=== PATIENT | male | born 1980 | race African-American/Black ===

== ENCOUNTER 2017-05-29 18:02 | Emergency (ER) | payer SELFPAY ==
[2017-05-29] MEDS ORDERED: RINGERS SOLUTION,LACTATED 1,000 ML IV ONE (18:55)
--- NOTE | 2017-05-29 19:14 | ER Document Report ---
ED General - General Mode of Arrival: Ambulatory Information source: Patient TRAVEL OUTSIDE OF THE [place] IN LAST 30 DAYS: No - HPI Onset: This afternoon - General Chief Complaint: General Weakness Stated Complaint: WEAKNESS Time Seen by Provider: 05/29/17 18:54 Notes: Patient is a 36-year-old male who presents to the emergency department today with complaints of "being dehydrated". 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 Patient states he believes that he drank enough water today, stating he carries around a gallon of water a day. Patient states that around 1400 he began "sweating uncontrollably" but he "feels 100% better now". Patient states he has a slight headache. (RASHMI SWEENEY) - Related Data Allergies/Adverse Reactions: milk [Milk] Allergy (Verified 09/27/15 13:48) Past Medical History - General Information source: Patient - Social History Smoking Status: Current Every Day Smoker Cigarette use (# per day): Yes Frequency of alcohol use: None Drug Abuse: None Lives with: Family Family History: Reviewed & Not Pertinent Patient has suicidal ideation: No - Medical History Medical History: Negative Surgical Hx: Negative - Immunizations Hx Diphtheria, Pertussis, Tetanus Vaccination: No Review of Systems - Review of Systems Constitutional: See HPI, Other - dehydrated EENT: No symptoms reported Cardiovascular: No symptoms reported Respiratory: No symptoms reported Gastrointestinal: No symptoms reported Genitourinary: No symptoms reported Male Genitourinary: No symptoms reported Musculoskeletal: No symptoms reported Skin: No symptoms reported Hematologic/Lymphatic: No symptoms reported Neurological/Psychological: See HPI, Weakness - generalized, Headaches Physical Exam - Vital signs Vitals: Temp Pulse Resp BP Pulse Ox 98.3 F 82 14 149/101 H 100 05/29/17 18:04 05/29/17 18:04 05/29/17 18:04 05/29/17 18:04 05/29/17 18:04 - Notes Notes: Physical Exam: General: Alert, appears well. HEENT: Normocephalic. Atraumatic. PERRL. Extraocular movements intact. Oropharynx clear. Dry mucous membranes. Neck: Supple. Non-tender. Respiratory: No respiratory distress. Clear and equal breath sounds bilaterally. Cardiovascular: Regular rate and rhythm. Abdominal: Normal Inspection. Non-tender. No distension. Normal Bowel Sounds. Back: Non-tender. No deformity or step off. Extremities: Moves all four extremities. Upper extremities: Normal inspection. Normal ROM. Lower extremities: Normal inspection. No edema. Normal ROM. Neurological: Normal cognition. AAOx4. Normal speech. Psychological: Normal affect. Normal Mood. Skin: Warm. Dry. Normal color. (RASHMI SWEENEY) Course - Re-evaluation Re-evalutation: 05/29 Patient appears well. Patient apparently was working outside in the heat all day. Patient states that he felt like he might pass out and felt very hot. He states that he feels better now. 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 Advised that he make sure he is drinking plenty of fluids and take breaks at work if he needs to go to work tomorrow. Offered to give a work note. Patient understands and agrees with this plan. Stable for discharge. Return if any worsening or concerning symptoms. (GABRIELA PRESLEY) - Vital Signs Vital signs: Temp Pulse Resp BP Pulse Ox 98.5 F 95 16 139/87 H 97 05/29/17 19:26 05/29/17 19:26 05/29/17 19:26 05/29/17 19:26 05/29/17 19:26 Discharge - Discharge Clinical Impression: Heat exhaustion Qualifiers: Encounter type: initial encounter Qualified Code(s): T67.5XXA - Heat exhaustion , unspecified, initial encounter Condition: Stable Disposition: HOME, SELF-CARE Instructions: Heat Exhaustion ([facility]) Additional Instructions: Please make sure that you are taking breaks at work if you are working in the heat. Please make sure you are drinking plenty of fluids. Forms: Return to Work Scribe Attestation: 05/30/17 00:30 I personally performed the services described in the documentation, reviewed and edited the documentation which was dictated to the scribe in my presence, and it accurately records my words and actions. (GABRIELA PRESLEY) Scribe Documentation - Scribe Written by Scribe:: Rashmi Sweeney, Rebecca, 05/29/2017 [id number] acting as scribe for :: Dylan
[2017-05-29 19:29] VITALS: BP 139/87
== END 2017-05-29 19:30 | disposition home or self-care (01) ==
LOC: ER 18:02
DX: T67.5XXA Heat exhaustion, unspecified, initial encounter (principal); R53.1 Weakness; R51 Headache; F17.210 Nicotine dependence, cigarettes, uncomplicated; X30.XXXA Exposure to excessive natural heat, initial encounter; Y93.E6 Activity, residential relocation; Y99.0 Civilian activity done for income or pay; Z91.011 Allergy to milk products
CPT/HCPCS: 99283

== ENCOUNTER 2018-03-29 01:54 | Emergency (ER) | payer SELFPAY ==
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
[2018-03-29] MEDS ORDERED: HYDROCODONE/ACETAMINOPHEN 5-325 MG (6 TAB/ER DISP) PO PRN (02:46)
[2018-03-29 04:06] VITALS: BP 147/95
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
== END 2018-03-29 03:05 | disposition home or self-care (01) ==
LOC: ER 01:54
DX: S50.12XA Contusion of left forearm, initial encounter (principal); I10 Essential (primary) hypertension; M25.532 Pain in left wrist; M25.522 Pain in left elbow; M79.632 Pain in left forearm; V86.96XA Unspecified occupant of dirt bike or motor/cross bike injured in nontraffic accident, initial encounter; F17.210 Nicotine dependence, cigarettes, uncomplicated
CPT/HCPCS: 99283; 73090; L3650

== ENCOUNTER 2018-04-18 22:24 | Emergency (ER) | payer SELFPAY ==
--- NOTE | 2018-04-19 00:06 | ER Document Report ---
ED Medical Screen (RME) - General Chief Complaint: Near Syncope Stated Complaint: SYCOPE/BLOOD PRESSURE ISSUE Time Seen by Provider: 04/19/18 00:03 Mode of Arrival: Ambulatory Information source: Patient Notes: 37-year-old male presents to ED for complaint of her blood pressure and passing out. States he woke up this morning very dizzy and like he was going to black out. States then around 9:00 he did blackout woke up on the floor and then again at 130 he woke blacked out on and woke up on the floor. States he has not seen a primary doctor in many years. He states he has been eating and drinking food and liquids today. She states he was seen in the ED about 3 weeks ago and was told that his blood pressure was very high. I have greeted and performed a rapid initial assessment of this patient. A comprehensive ED assessment and evaluation of the patient, analysis of test results and completion of medical decision making process will be conducted by an additional ED providers. TRAVEL OUTSIDE OF THE [place] IN LAST 30 DAYS: No - Related Data Allergies/Adverse Reactions: milk [Milk] Allergy (Verified 09/27/15 13:48) Past Medical History Renal/ Medical History: Denies: Hx Peritoneal Dialysis - Immunizations Hx Diphtheria, Pertussis, Tetanus Vaccination: No Physical Exam - Vital signs Vitals: Temp Pulse Resp BP Pulse Ox 97.8 F 109 H 18 141/88 H 97 04/18/18 23:17 04/18/18 23:17 04/18/18 23:17 04/18/18 23:17 04/18/18 23:17 Course - Vital Signs Vital signs: Temp Pulse Resp BP Pulse Ox 97.8 F 109 H 18 141/88 H 97 04/18/18 23:17 04/18/18 23:17 04/18/18 23:17 04/18/18 23:17 04/18/18 23:17
[2018-04-19 00:44] LABS: ABSOLUTE BASOPHILS # (AUTO) 0.1 10^3/uL (0.0-0.2); ABSOLUTE EOSINOPHILS # (AUTO) 0.1 10^3/uL (0.0-0.6); ABSOLUTE LYMPHOCYTES (AUTO) 3.4 10^3/uL (0.5-4.7); ABSOLUTE MONOCYTES (AUTO) 0.7 10^3/uL (0.1-1.4); ABSOLUTE NEUT (AUTO) 2.9 10^3/uL (1.7-8.2); BASOPHILS % (AUTO) 1.5 % (0-2); HEMATOCRIT 43.3 % (37.9-51.0); HEMOGLOBIN 14.9 g/dL (13.5-17.0); LYMPHOCYTES % (AUTO) 47.5 % (13-45); MEAN CORPUSCULAR HEMOGLOBIN 31.6 pg (27.0-33.4); MEAN CORPUSCULAR HGB CONC 34.5 g/dL (32.0-36.0); MEAN CORPUSCULAR VOLUME 92 fl (80-97); MONOCYTES % (AUTO) 9.5 % (3-13); PLATELET COUNT 350 10^3/uL (150-450); RED BLOOD COUNT 4.72 10^6/uL (4.35-5.55); RED CELL DISTRIBUTION WIDTH 13.6 % (11.5-14.0); SEGMENTED NEUTROPHILS % (AUTO) 40.5 % (42-78); TOTAL CELLS COUNTED % (AUTO) 100 %; WHITE BLOOD COUNT 7.2 10^3/uL (4.0-10.5)
[2018-04-19 01:00] LABS: URINE AMPHETAMINES SCREEN UNCONFIRMED POSITIVE; URINE BARBITURATES SCREEN NEGATIVE; URINE BENZODIAZEPINES SCREEN NEGATIVE; URINE COCAINE SCREEN NEGATIVE; URINE MARIJUANA (THC) SCREEN UNCONFIRMED POSITIVE; URINE PHENCYCLIDINE SCREEN NEGATIVE
[2018-04-19 01:10] LABS: ALANINE AMINOTRANSFERASE 51 U/L (21-72); ALBUMIN 4.5 g/dL (3.5-5.0); ALCOHOL 88 mg/dL (NONE DETECTED); ALKALINE PHOSPHATASE 74 U/L (38-126); ANION GAP 15 (5-19); ASPARTATE AMINO TRANSFERASE 38 U/L (17-59); BILIRUBIN,DIRECT 0.4 mg/dL (0.0-0.4); BLOOD UREA NITROGEN 6 mg/dL (7-20); CALCIUM 10.2 mg/dL (8.4-10.2); CARBON DIOXIDE 27 mmol/L (22-30); CHLORIDE 102 mmol/L (98-107); CREATINE KINASE 238 U/L (55-170); GLUCOSE 82 mg/dL (75-110); POTASSIUM 3.8 mmol/L (3.6-5.0); SODIUM 143.8 mmol/L (137-145); TOTAL PROTEIN 7.6 g/dL (6.3-8.2)
[2018-04-19 01:23] LABS: CREATINE KINASE MB 4.35 ng/mL (<4.55)
[2018-04-19 01:24] LABS: TROPONIN I < 0.012 ng/mL
--- NOTE | 2018-04-19 02:47 | RADIOLOGY REPORT (SQ) ---
EXAM DESCRIPTION: 2 views of the chest CLINICAL HISTORY: sob COMPARISON: None. FINDINGS: Frontal and lateral views of the chest. The cardiomediastinal silhouette has normal size and contour. No consolidation, pneumothorax, or pleural effusion. No displaced rib fractures identified. Leads overlie the chest. Upper abdominal soft tissues are unremarkable. IMPRESSION: 1. No acute pulmonary process identified.
--- NOTE | 2018-04-19 03:04 | ER Document Report ---
ED General - General Chief Complaint: Near Syncope Stated Complaint: SYCOPE/BLOOD PRESSURE ISSUE Time Seen by Provider: 04/19/18 00:03 Mode of Arrival: Ambulatory TRAVEL OUTSIDE OF THE [place] IN LAST 30 DAYS: No - HPI Patient complains to provider of: Syncope Notes: Patient coming in for evaluation of syncope. Patient states he had 2 syncopal episodes while sitting in his house tonight. Patient states these were witnessed however the wounds is currently not available. Patient denies any head pain chest pain abdominal pain nausea vomiting fevers or chills prior to during or after the both the syncopal episode. Patient denies any having syncope in the past. 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 Patient denies any illicit drugs or alcohol use. - Related Data Allergies/Adverse Reactions: milk [Milk] Allergy (Verified 09/27/15 13:48) Past Medical History - General Information source: Patient - Social History Smoking Status: Current Some Day Smoker Frequency of alcohol use: Occasional Drug Abuse: None Family History: Reviewed & Not Pertinent Patient has suicidal ideation: No Patient has homicidal ideation: No Renal/ Medical History: Denies: Hx Peritoneal Dialysis - Immunizations Hx Diphtheria, Pertussis, Tetanus Vaccination: No Review of Systems - Review of Systems Constitutional: No symptoms reported EENT: No symptoms reported Cardiovascular: Syncope Respiratory: No symptoms reported Gastrointestinal: No symptoms reported Genitourinary: No symptoms reported Male Genitourinary: No symptoms reported Musculoskeletal: No symptoms reported Skin: No symptoms reported Hematologic/Lymphatic: No symptoms reported Neurological/Psychological: No symptoms reported -: Yes All other systems reviewed and negative Physical Exam - Vital signs Vitals: Temp Pulse Resp BP Pulse Ox 97.8 F 109 H 18 141/88 H 97 04/18/18 23:17 04/18/18 23:17 04/18/18 23:17 04/18/18 23:17 04/18/18 23:17 Interpretation: Normal - General General appearance: Appears well, Alert - HEENT Head: Normocephalic, Atraumatic Eyes: Normal Pupils: PERRL - Respiratory Respiratory status: No respiratory distress Chest status: Nontender Breath sounds: Normal Chest palpation: Normal - Cardiovascular Rhythm: Regular Heart sounds: Normal auscultation Murmur: No - Abdominal Inspection: Normal Distension: No distension Bowel sounds: Normal Tenderness: Nontender Organomegaly: No organomegaly - Back Back: Normal, Nontender - Extremities General upper extremity: Normal inspection, Nontender, Normal color, Normal ROM , Normal temperature General lower extremity: Normal inspection, Nontender, Normal color, Normal ROM , Normal temperature, Normal weight bearing. No: Nick's sign - Neurological Neuro grossly intact: Yes Cognition: Normal Orientation: AAOx4 [place] Coma Scale Eye Opening: Spontaneous [place] Coma Scale Verbal: Oriented [place] Coma Scale Motor: Obeys Commands [place] Coma Scale Total: 15 Speech: Normal Motor strength normal: LUE, RUE, LLE, RLE Sensory: Normal - Psychological Associated symptoms: Normal affect, Normal mood - Skin Skin Temperature: Warm Skin Moisture: Dry Skin Color: Normal Course - Re-evaluation Re-evalutation: 04/19/18 04:09 Patient evaluation does not reveal any critical pathology for his syncope however does reveal alcohol in the patient's symptoms along with other illicit substances such as marijuana and amphetamines. Upon questioning the patient patient did state he had a small amount of alcohol however does not take it was enough for a legal limit alcohol level. Patient also denies any amphetamine use and also denies any marijuana use. Otherwise patient remained stable here orthostatics on was slightly positive with increase in the patient's heart rate however no increase or reproduction of symptoms. Did encourage patient to continue with his hydration however at this time chest x-ray laboratory studies did not reveal critical pathology patient will be discharged home - Vital Signs Vital signs: Temp Pulse Resp BP Pulse Ox 97.8 F 98 19 131/83 H 100 04/18/18 23:17 04/19/18 01:55 04/19/18 03:20 04/19/18 03:20 04/19/18 03:20 - Laboratory Result Diagrams: 04/19/18 00:25 04/19/18 00:25 Laboratory results interpreted by me: 04/19/18 04/19/18 00:25 00:25 Seg Neutrophils % 40.5 L Lymphocytes % 47.5 H BUN 6 L Creatine Kinase 238 H Discharge - Discharge Clinical Impression: Syncope Qualifiers: Syncope type: unspecified Qualified Code(s): R55 - Syncope and collapse Condition: Good Disposition: HOME, SELF-CARE Instructions: Syncopal Episode ([facility]) Additional Instructions: Your laboratory studies not did not reveal any significant pathology for your syncope. Your laboratory studies that show alcohol within your system slightly above the legal limit also does show marijuana and some amphetamines. This combination can cause a possible syncopal episode also your vital signs did show some slight suggestion of dehydration. Would recommend that you continue to drink plenty water please follow-up with your primary care physician if symptoms worsen return to the ER Referrals: SUKHDEEP CHRIS MD [Primary Care Provider] - Follow up as needed
[2018-04-19 03:22] VITALS: BP 131/83
--- NOTE | 2018-04-19 08:40 | EKG REPORT ---
SEVERITY:- ABNORMAL ECG - SINUS RHYTHM ST ELEV, PROBABLE NORMAL EARLY REPOL PATTERN PROLONGED QT INTERVAL : Confirmed by: Natasha Bender 19-Apr-2018 08:39:32
== END 2018-04-19 03:30 | disposition home or self-care (01) ==
LOC: ER 22:24
DX: R55 Syncope and collapse (principal); F17.200 Nicotine dependence, unspecified, uncomplicated; Z91.011 Allergy to milk products
CPT/HCPCS: 36415; 71046; 80053; 80307; 82550; 82553; 84484; 85025; 87086; 93005; 93010; 99284

== ENCOUNTER 2020-04-24 02:08 | Emergency (ER) | payer SELFPAY ==
--- NOTE | 2020-04-24 03:51 | RADIOLOGY REPORT (SQ) ---
EXAM: XR Right Shoulder Complete, 3 Views EXAM DATE/TIME: 04/24/2020 03:01 CLINICAL HISTORY: The patient is 39 years old and is Male; right shoulder pain x 1 month TECHNIQUE: 3 views of the right shoulder. COMPARISON: Chest radiograph from 04/19/2018 FINDINGS: BONES/JOINTS: There are erosive changes at the distal aspect of the clavicle, which are new compared to the prior studies. No obvious acute fracture. No dislocation. SOFT TISSUES: No significant soft tissue swelling visualized. IMPRESSION: Erosive changes of the distal clavicle. The differential for this appearance includes weightlifter's shoulder, sequelae of trauma, as well as osteomyelitis. A similar appearance can also be seen in patients with rheumatoid arthritis and hyperparathyroidism. Recommend correlation with clinical history. MRI could be performed for further evaluation if indicated.
[2020-04-24] MEDS ORDERED: KETOROLAC TROMETHAMINE 60 MG/2 ML SDV IM ONE (04:17)
--- NOTE | 2020-04-24 04:17 | ER Document Report ---
Entered by KAVON BLAND SCRIBE 04/24/20 0306 Acting as scribe for:MRIIAM DIMAS IV, MD ED General - General Chief Complaint: Blood Pressure Problem Stated Complaint: BLOOD PRESSURE ISSUES Time Seen by Provider: 04/24/20 02:36 Primary Care Provider: SUKHDEEP CHRIS MD [Primary Care Provider] - Follow up as needed Mode of Arrival: Ambulatory Information source: Patient Notes: This 39 year old male patient presents to the ED today with complaints of an elevated blood pressure. Patient states that when he checked his blood pressure at work yesterday, it was 190/185. He also complains of right shoulder pain due to a possible torn rotator cuff for the past x1 month, worse in the last couple of weeks. He reports that the pain is so severe that he can barely hold a fork and has trouble sleeping at night. TRAVEL OUTSIDE OF THE [place] IN LAST 30 DAYS: No - Related Data Allergies/Adverse Reactions: milk [Milk] Allergy (Verified 09/27/15 13:48) Past Medical History - General Information source: Patient, [facility] Records - Social History Smoking Status: Current Every Day Smoker Cigarette use (# per day): Yes Chew tobacco use (# tins/day): No Smoking Education Provided: No Frequency of alcohol use: Occasional Drug Abuse: Marijuana Family History: Reviewed & Not Pertinent Patient has suicidal ideation: No Patient has homicidal ideation: No - Immunizations Hx Diphtheria, Pertussis, Tetanus Vaccination: No Review of Systems - Review of Systems Constitutional: See HPI, Other - Elevated blood pressure EENT: No symptoms reported Cardiovascular: No symptoms reported Gastrointestinal: No symptoms reported Genitourinary: No symptoms reported Male Genitourinary: No symptoms reported Musculoskeletal: See HPI, Joint pain - R shoulder Skin: No symptoms reported Hematologic/Lymphatic: No symptoms reported Neurological/Psychological: No symptoms reported -: Yes All other systems reviewed and negative Physical Exam - Vital signs Vitals: Temp 99.2 F 04/24/20 02:18 - General General appearance: Alert In distress: None - HEENT Head: Normocephalic, Atraumatic Eyes: Normal Pupils: PERRL - Respiratory Respiratory status: No respiratory distress Chest status: Nontender Breath sounds: Normal Chest palpation: Normal - Cardiovascular Rhythm: Regular, Tachycardia Heart sounds: Normal auscultation Murmur: No Friction rub: No Gallop: None auscultated - Abdominal Inspection: Normal Distension: No distension Bowel sounds: Normal Tenderness: Nontender - Abdomen soft Organomegaly: No organomegaly - Back Back: Normal, Nontender - Extremities General lower extremity: Normal inspection Shoulder: Tender - Tenderness to palpation over posterior deltoid on the right side, Other - No tenderness to palpation over right clavicle - Neurological Neuro grossly intact: Yes Orientation: AAOx4 - Psychological Associated symptoms: Normal affect, Normal mood - Skin Skin Temperature: Warm Skin Moisture: Dry Skin Color: Normal Course - Re-evaluation Re-evalutation: 04/24/20 04:14 Results of right shoulder film discussed with patient. Possibility of significant medical disorder and/or infection discussed with patient. Patient informed that is recommended he stay and have an MRI done of his shoulder as well as blood work to ascertain the etiology of his shoulder pain and the abnormal appearance of his right shoulder film. Patient states that he has to "pay rent and talk to" his boss and then he will come right back. Patient was informed that if he leaves now that he is leaving AGAINST MEDICAL ADVICE the risks of which include but are not limited to permanent loss of arm function, permanent disability, overwhelming infection, permanent disability, . Patient states that he understands the risks as they were explained to him. Patient was encouraged to return to the emergency department at any time. Patient states he will return within a couple of hours to have further evaluation done after he pays his rent and talks to his boss. - Vital Signs Vital signs: Temp Pulse Resp BP Pulse Ox 99.2 F 132 H 20 147/116 H 99 04/24/20 02:18 04/24/20 02:19 04/24/20 02:19 04/24/20 02:19 04/24/20 02:19 - Diagnostic Test Radiology reviewed: Reports reviewed Discharge - Discharge Clinical Impression: Abnormal x-ray of shoulder Right shoulder pain Qualifiers: Chronicity: unspecified Qualified Code(s): M25.511 - Pain in right shoulder Disposition: AGAINST MEDICAL ADVICE Additional Instructions: Return to the Emergency Department without delay if any worse. You may return to the emergency department at any time if you decide to seek further evaluation and treatment. You have been diagnosed with an abnormal x-ray of your right shoulder. The cause of the abnormality is uncertain at this point. It has been recommended that you stay in the emergency department for further evaluation including lab work and MRI of the shoulder. You have decided at this time that she you are unable to stay and or going to leave AGAINST MEDICAL ADVICE. You can return to the emergency department at any time if you decide to seek further treatment. HOME CARE INSTRUCTIONS & INFORMATION: Thank you for choosing us for your medical needs. We hope you're satisfied with the care you received. After you leave, you must properly care for your problem and, at the same time, observe its progress. Any condition can change. Some illnesses can change rapidly over hours or days. If your condition worsens, return to the Emergency Department or see your physician promptly. ABOUT YOUR X-RAYS AND EKG'S: If you had an EKG or X-rays taken, they have been read by the Emergency Physician. The X-rays and EKG's will also be read by a Radiologist or Apparatus Repair Mechanic within 24 hours. If discrepancies are noted, you will be notified by telephone. Please be certain the ED has a correct telephone number & address where you can be reached. Also, realize that some fractures or abnormalities do not show up on initial X-rays. If your symptoms continue, see your physician. ABOUT YOUR LABORATORY TEST: If you had laboratory tests, the results have been reviewed by the Emergency Physician. Some test results (for example cultures) may not be available for several days. You will be contacted if any test result shows you need additional treatment. Please be certain the ED has a correct telephone number and address where you can be reached. ABOUT YOUR MEDICATIONS: You will receive instructions on how to take your medicine on the prescription label you receive. Additional information may be provided by the Pharmacy. If you have questions afterwards, call the ED for clarification or further instructions. Some prescribed medications may cause drowsiness. Do not perform tasks such as driving a car or operating machinery without consulting your Pharmacist. If you feel you need a refill of pain medication, your condition will need re-evaluation. Please do not call for a refill of any medication. ABOUT YOUR SIGNATURE: Signature of this document acknowledges to followin. Understanding that you received emergency treatment and that you may be released before al medical problems are known or treated. Please be certain the ED has a correct phone number & address where you can be reached. 2. Acknowledgement that you will arrange for follow-up care as recommended. 3. Authorization for the Emergency Physician to provide information to your follow-up Physician in order to maximize your care. AT ANY TIME, IF YOUR SYMPTOMS CHANGE SIGNIFICANTLY OR WORSEN OR YOU DEVELOP NEW SYMPTOMS, RETURN TO THE EMERGENCY DEPARTMENT IMMEDIATELY FOR RE-EVALUATION. OUR GOAL IS TO PROVIDE EXCELLENT MEDICAL CARE! WE HOPE THAT WE HAVE MET YOUR EXPECTATIONS DURING YOUR EMERGENCY DEPARTMENT VISIT AND THAT YOU FEEL YOU HAVE RECEIVED EXCELLENT CARE! Referrals: SUKHDEEP CHRIS MD [Primary Care Provider] - Follow up as needed I personally performed the services described in the documentation, reviewed and edited the documentation which was dictated to the scribe in my presence, and it accurately records my words and actions.
[2020-04-24 04:54] VITALS: BP 132/86
== END 2020-04-24 04:54 | disposition left against medical advice (07) ==
LOC: ER 02:08
DX: R93.6 Abnormal findings on diagnostic imaging of limbs (principal); M25.511 Pain in right shoulder; R03.0 Elevated blood-pressure reading, without diagnosis of hypertension; R00.0 Tachycardia, unspecified; F17.210 Nicotine dependence, cigarettes, uncomplicated
CPT/HCPCS: 99283

== ENCOUNTER 2020-04-24 11:35 | Emergency (ER) | payer SELFPAY ==
[2020-04-24 11:40] VITALS: BP 142/119
--- NOTE | 2020-04-24 12:44 | ER Document Report ---
HPI - HPI Patient complains to provider of: Shoulder pain Time Seen by Provider: 04/24/20 12:31 Onset/Duration: Waxing and waning Pain Level: 5 Context: This 39-year-old man who has had shoulder discomfort for several months. He presented to the emergency room for evaluation earlier today and eloped. His x- ray was returned he does have some internal damage to that shoulder and he does definitely need to follow-up with an orthopedist and he returned here for or an orthopedic follow-up as well as medication to help him with some discomfort. Associated Symptoms: None Exacerbated by: Denies Relieved by: Denies Recently seen / treated by doctor: Yes Past Medical History - General Information source: Patient - Social History Smoking Status: Current Every Day Smoker Frequency of alcohol use: Occasional Drug Abuse: Marijuana Family History: Reviewed & Not Pertinent Patient has homicidal ideation: No Renal/ Medical History: Denies: Hx Peritoneal Dialysis - Immunizations Hx Diphtheria, Pertussis, Tetanus Vaccination: No Vertical Provider Document - CONSTITUTIONAL Agree With Documented VS: Yes - INFECTION CONTROL TRAVEL OUTSIDE OF THE [place] IN LAST 30 DAYS: No - HEENT HEENT: Atraumatic, Conjuctival Injection, Normocephalic, PERRLA - NECK Neck: Normal Inspection - RESPIRATORY Respiratory: Breath Sounds Normal, No Respiratory Distress - CARDIOVASCULAR Cardiovascular: Regular Rate, Regular Rhythm - GI/ABDOMEN Gastrointestinal: Abdomen Soft, Abdomen Non-Tender - BACK Back: Normal Inspection - MUSCULOSKELETAL/EXTREMETIES Musculoskeletal/Extremeties: MAEW, Tender - Tenderness to the right shoulder good distal pulses Course - Vital Signs Vital signs: Temp Pulse Resp BP Pulse Ox 98.4 F 130 H 14 142/119 H 97 04/24/20 12:28 04/24/20 11:38 04/24/20 11:38 04/24/20 11:38 04/24/20 11:38 Discharge - Discharge Clinical Impression: Shoulder injury Qualifiers: Encounter type: subsequent encounter Laterality: right Qualified Code(s): S49.91XD - Unspecified injury of right shoulder and upper arm, subsequent encounter Disposition: HOME, SELF-CARE Instructions: Shoulder Injury ([facility]) Additional Instructions: Shoulder Injury You have injured your shoulder. This usually results from stretching or tearing of the tendons during trauma. Time and protection are required in order to heal properly. Many injuries are quite disabling, and should be taken seriously. Initial treatment includes cold packs and a sling to rest the shoulder. The physician has assessed the seriousness of your injury, and has outlined a treatment plan. Understand that this treatment may change, depending on how you progress. If a re-examination was recommended, it is important that you follow up as instructed. Some shoulder injuries (such as partial tear of the rotator cuff) are only suspected after you've failed to improve. Call us if there's severe pain, numbness, or loss of function. Prescriptions: Tramadol HCl [Ultram 50 mg Tablet] 50 mg PO Q6HP PRN #40 tablet PRN Reason: Ibuprofen [Motrin 600 Mg Tablet] 600 mg PO TID #15 tablet Referrals: SUKHDEEP CHRIS MD [Primary Care Provider] - Follow up as needed BLANCA NIETO MD [ACTIVE PROVISIONAL STAFF] - Follow up as needed
== END 2020-04-24 12:48 | disposition home or self-care (01) ==
LOC: ER 11:35
DX: S49.91XD Unspecified injury of right shoulder and upper arm, subsequent encounter (principal); X58.XXXD Exposure to other specified factors, subsequent encounter; F17.200 Nicotine dependence, unspecified, uncomplicated
CPT/HCPCS: 99283